=== PATIENT | female | born 1940 | race Hispanic/Latino ===

== ENCOUNTER 2017-10-30 09:21 | Day surgery (SDC) | payer MEDICARE, BC ==
[2017-10-29 11:24] VITALS: BMI 24.4
[2017-10-30 10:07] VITALS: O2SAT 98
[2017-10-30 10:10] LABS: BASO # 0.03 K/mm3 (0.0-2.0); BASO % 0.6 % (0.0-3.0); EOS # 0.2 (0.0-0.7); EOS % 4.5 % (1.5-5.0); GRAN # 3.23 (1.4-6.5); GRAN % 60.3 % (50.0-68.0); HEMOGLOBIN 13.8 g/dL (12.0-16.0); LYMPH # 1.5 (1.2-3.4); LYMPH % 28.4 % (22.0-35.0); MEAN CELL VOLUME 95.1 fl (80.0-105.0); MEAN CORPUSCULAR HEMOGLOBIN 30.7 pg (25.0-35.0); MEAN CORPUSCULAR HGB CONC 32.3 g/dl (31.0-37.0); MEAN PLATELET VOLUME 10.9 fl (7.0-11.0); MONO # 0.3 (0.1-0.6); MONO % 6.2 % (1.0-6.0); RBC 4.49 10^6/uL (3.5-6.1); RED CELL DISTRIBUTION WIDTH 12.8 % (11.5-14.5); WHITE BLOOD COUNT 5.4 10^3/ul (4.5-11.0)
[2017-10-30 10:14] LABS: BLOOD UREA NITROGEN 21 mg/dL (7-21); CALCIUM 9.2 mg/dL (8.4-10.5); GFR AFRICAN-AMERICAN > 60; GFR NON-AFRICAN AMERICAN 54
[2017-10-30 10:24] LABS: INR 0.99 (0.93-1.08); PARTIAL THROMBOPLASTIN TIME 28.5 Seconds (25.1-36.5); PROTHROMBIN TIME 11.4 SECONDS (9.4-12.5)
[2017-10-30] MEDS ORDERED: Midazolam 2 MG/2 ML VIAL ONE (11:05)
[2017-10-30] MEDS ORDERED: Lidocaine 1% Inj (20ml) ONE (11:30)
[2017-10-30] MEDS ORDERED: Oxycodone/Acetaminophen 5/325 mg Tab PO PRN (11:56)
[2017-10-30] MEDS ORDERED: Sodium Chloride 0.45% 1,000 ML IV SCH (12:00)
[2017-10-30 13:13] VITALS: RESP 20; TEMP 98.1
--- NOTE | 2017-10-30 13:24 | CT ---
PROCEDURE: CT guided left chest biopsy. HISTORY: Previous breast carcinoma. New left arm swelling and pain. Abnormal packed with possible recurrence at thoracic outlet. Evaluate for metastatic disease. PHYSICIAN(S): Cuate Renteria MD. TECHNIQUE: The relative risks and indications of the procedure were explained to the patient and her and consent obtained. The patient was placed supine on the CT scanner and preliminary images through the superior chest obtained. Conscious sedation and monitoring were provided throughout the procedure by a nurse. There is a subtle infiltrative 2-3 cm soft tissue area adjacent to the left 1st rib anteriorly. This corresponds to the abnormality seen on recent PET/CT. A anterior approach was selected and the area prepped and draped in the usual sterile fashion. 1% Xylocaine was used to anesthetize the skin and soft tissues. A 17-gauge guiding needle was advanced into the soft tissue density adjacent to the left 1st rib. Its position was confirmed with CT. Using coaxial technique, multiple core biopsies were obtained. The postprocedure images show no evidence of significant hemorrhage. IMPRESSION: 1. CT-guided left chest biopsy as described above.
[2017-10-30 14:56] VITALS: BP 132/62; PULSE 70
== END 2017-10-30 14:45 | disposition home or self-care (01) ==
LOC: SDS 09:21
PROVIDERS: ATTEND Radiology Vascular & Interventional Radiology
DX: C50.912 Malignant neoplasm of unspecified site of left female breast (principal); Z85.3 Personal history of malignant neoplasm of breast
CPT/HCPCS: 32405; 36415; 77012; 80048; 85025; 85610; 85730; 88305; 99152; J2250; J2405; J3010; J7030

== ENCOUNTER 2018-09-22 05:37 | Outpatient (CLI) | payer MEDICARE, BC | END 2018-09-22 05:38 | disposition home or self-care (01) | LOC: PET-BROA 05:37 | DX: C50.919 Malignant neoplasm of unspecified site of unspecified female breast (principal); C77.3 Secondary and unspecified malignant neoplasm of axilla and upper limb lymph nodes ==

== ENCOUNTER 2018-11-22 10:03 | Day surgery (SDC) | payer MEDICARE, BC | END 2018-11-22 15:00 | disposition home or self-care (01) | LOC: ENDO 10:03 ==